=== PATIENT | male | born 1995 | race Two or more races ===

== ENCOUNTER 2018-03-31 03:33 | Emergency (ER) | payer SELFPAY ==
[~2018-03-31] VITALS: Ht 162.6 cm; Wt 63.5 kg
[2018-03-31 03:35] VITALS: BP 106/67
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
[2018-03-31 04:59] VITALS: BP 106/67
[2018-03-31 06:19] VITALS: BP 115/67
[2018-03-31 06:38] VITALS: BP 115/75
== END 2018-03-31 06:40 | disposition home or self-care (01) ==
LOC: EDBD 03:33 → EMR 04:04
DX: F10.129 Alcohol abuse with intoxication, unspecified (principal)
CPT/HCPCS: 99283